=== PATIENT | female | born 1965 | race Caucasian/White ===

== ENCOUNTER 2021-06-08 14:38 | Outpatient (REF) | payer OTHER, SELFPAY ==
[2021-06-09 01:07] LABS: COVID-19 RT-PCR UVMMC Result Negative (Negative)
== END 2021-06-08 14:39 | disposition home or self-care (01) ==
LOC: LBN 14:38
PROVIDERS: PCP Family Medicine; Visit Provider Physician Assistant
DX: Z20.822 Contact with and (suspected) exposure to COVID-19 (principal)
CPT/HCPCS: U0003

== ENCOUNTER 2021-10-26 13:21 | Outpatient (CLI) | payer OTHER, SELFPAY ==
--- NOTE | 2021-10-26 | DI.RAD_ITS ---
Exam(s) XR HIP LT COMPLETE AP PELVIS EXAM: XR HIP LT COMPLETE AP PELVIS CLINICAL HISTORY: LT HIP PAIN, M25.552, HX KER[facility] 2010, NEW PAIN AND FEELING INSTABILITY. TECHNIQUE: 2D digital imaging was performed of the left hip. Three views were obtained. AP pelvis and lateral left hip views were obtained. COMPARISON: FINDINGS: BONES: No acute fracture is present. No bony destructive lesion is seen. JOINTS: No dislocation present. There are stable postsurgical changes of a left total hip replacement . No lucencies are seen in or about the orthopedic hardware to suggest loosening or infection. SOFT TISSUE: Normal. IMPRESSION: Stable left THR. DATA REPOSITORY: RADIATION DOSE DELIVERED:
== END 2021-10-26 13:41 ==
PROVIDERS: PCP Family Medicine; Visit Provider Family Medicine
DX: M25.552 Pain in left hip (principal); M25.352 Other instability, left hip; Z96.642 Presence of left artificial hip joint
CPT/HCPCS: 73502